=== PATIENT | male | born 1980 ===

== ENCOUNTER 2019-02-25 19:44 | Emergency (ER) | payer SELFPAY ==
[~2019-02-25] VITALS: Ht 177.8 cm; Wt 80.0 kg
[2019-02-25 19:50] VITALS: BP 137/76
--- NOTE | 2019-02-25 19:59 | NUR ---
PT BIB [facility] WITH C/O LEFT HIP PAIN GOING DOWN LEFT LEG X 2 WEEKS
--- NOTE | 2019-02-25 20:28 | NUR ---
ASKED PT FOR URINE SAMPLE, URINAL GIVEN, PT STATES THAT HE CANT VOID THIS TIME
[2019-02-25] MEDS ORDERED: ACETAMINOPHEN 500 MG TABLET ONE (21:14)
[2019-02-25 21:26] LABS: MICROSCOPIC NOT IND
[2019-02-25] MEDS ORDERED: PLEASE ENTER ALLERGIES MC SCH (21:30)
[2019-02-25] MEDS ORDERED: ACETAMINOPHEN 500 MG TABLET PO ONE (21:30)
[2019-02-25 21:36] LABS: CULTURE INDICATED? NO
[2019-02-25 21:41] LABS: AMPHETAMINE SCREEN, URINE Positive (Negative); BARBITURATE SCREEN, URINE Negative (Negative); BENZODIAZEPINE SCREEN, URINE Negative (Negative); CANNABINOID SCREEN, URINE Positive (Negative); COCAINE SCREEN, URINE Negative (Negative); METHADONE SCREEN, URINE Negative (Negative); OPIATE SCREEN, URINE Negative (Negative)
== END 2019-02-25 21:24 | disposition home or self-care (01) ==
LOC: ED 21:18
DX: M51.36 Other intervertebral disc degeneration, lumbar region (principal); F17.210 Nicotine dependence, cigarettes, uncomplicated
CPT/HCPCS: 72110; 80307; 81003; 93005; 99284; J7512